=== PATIENT | female | born 1940 | race Caucasian/White ===

== ENCOUNTER 2016-11-23 14:06 | Inpatient (IN) ==
[2016-11-23 14:51] LABS: BASOPHILS % (AUTO) 0.7 % (0.0-3.0); EOSINOPHILS % (AUTO) 0.9 % (0.0-7.0); HEMATOCRIT 36.8 % (37.0-47.0); HEMOGLOBIN 12.4 g/dl (12.0-16.0); IMMATURE GRANULOCYTE % (AUTO) 1.2 % (0.0-5.0); LYMPHOCYTES # (AUTO) 0.6 K/uL (0.60-3.4); LYMPHOCYTES % (AUTO) 12.9 (10.0-50.0); MEAN CORPUSCULAR HEMOGLOBIN 33.5 pg (27.0-31.0); MEAN CORPUSCULAR HGB CONC 33.7 (31.8-35.4); MEAN CORPUSCULAR VOLUME 99.5 fl (81.0-99.0); MONOCYTES # (AUTO) 0.6 K/uL (0.4-2.0); MONOCYTES % (AUTO) 13.1 (0-10); NEUTROPHILS # (AUTO) 3.1 K/ul (2.0-6.9); NEUTROPHILS % (AUTO) 71.2; PLATELET COUNT 107 10^3/uL (140-440); WHITE BLOOD COUNT 4.28 K/ul (4.6-10.2)
[2016-11-23 14:56] LABS: BILIRUBIN,URINE 2+ (NEGATIVE); KETONES,URINE 1+ (NEGATIVE); LEUKOCYTE ESTERASE ,URINE Negative (NEGATIVE); NITRITE,URINE Negative (NEGATIVE); PH,URINE 5.5 (5-9); PROTEIN,URINE 2+ (NEGATIVE); URINE, BLOOD Negative (NEGATIVE)
[2016-11-23 15:00] LABS: ADD URINE MICROSCOPIC YES
--- NOTE | 2016-11-23 15:14 | DI ---
EXAM: Chest two views HISTORY: Cough COMPARISON: 11/08/2015 TECHNIQUE: Two views of the chest were performed FINDINGS: There is left-sided chest port terminating in superior vena cava. Lungs are clear. Ther e is no pleural effusion or pneumothorax. The heart is normal in size. The mediastinal contour is normal. There are no acute abnormalities of the bones. There is a moderate hiatal hernia. Electroni c recording device overlies the left chest. IMPRESSION: 1. No acute cardiopulmonary process. 2. Moderate hiatal hernia
[2016-11-23 15:19] LABS: ALBUMIN 3.1 g/dL (3.4-5.0); ALBUMIN/GLOBULIN RATIO 1.11; ANION GAP 17.4; BILIRUBIN,TOTAL 1.17 mg/dL (0.00-1.20); BUN/CREATININE RATIO 17.74; CALCIUM 9.1 mg/dL (8.2-10.2); CREATININE 1.24 mg/dL (0.60-1.30); POTASSIUM 4.4 mmol/L (3.5-5.10); TOTAL PROTEIN 5.9 g/dL (5.8-8.1); TROPONIN I 0.012 ng/ml (0.0000-0.4000)
--- NOTE | 2016-11-23 15:32 | CT ---
Exam: CT abdomen and pelvis without contrast. Clinical indication: Right upper abdominal pain. TECHNIQUE: Axial unenhanced CT images of the abdomen and pelvis were obtained followed by coronal a nd sagittal reformats. There are no prior studies available for comparison. Findings: There is interval development of the extensive hepatic metastatic lesions seen throughout the entire liver causing hepatomegaly. These range in size from small to greater than 3 cm in diameter and ar e too numerous to count. There is a trace of free fluid within the pelvis. The gallbladder is absent. The adrenals, pancreas, spleen, and right kidney are normal. There has been a prior left nephrectomy. Within the left retroperitoneal area there is some soft tissue thickening suggesting left retroperit alfredo adenopathy. This measures up to 1.4 cm in thickness. There are no other definite enlarged ab dominal or pelvic lymph nodes. The pelvic is somewhat obscured by beam hardening artifact from the patient's left total hip arthrop lasty. There appears to been a prior hysterectomy. There is sigmoid diverticulosis, without evidence of diverticulitis. There is a moderate hiatal her don. The remainder of the visualized bowel is unremarkable. There is a calcified right lower lobe pulmonary granuloma, consistent with old healed granulomatous disease. The remainder of the visuali zed portions of the lower thorax are unremarkable. There is no CT evidence of definite bony metastatic disease. Impression: 1. Extensive hepatic metastatic disease causing hepatomegaly. 2. Enlarged left retroperitoneal lymph nodes consistent with regional metastatic disease. 3. Evidence of prior left nephrectomy. 4. Sigmoid diverticulosis. 5. Moderate hiatal hernia.
--- NOTE | 2016-11-23 15:41 | ED.PDOC ---
General ED Provider: Dr. CHAIM MORRISON Chief Complaint: Weakness Stated Complaint: generalized weakness Time Seen by Physician: 14:10 (history of renal cancer) Mode of Arrival: Walk-In Information Source: Patient, Family Exam Limitations: No limitations Primary Care Provider: [facility] Nursing and Triage Documentation Reviewed and Agree: Yes Neurological Complaint Exam - Weakness Complaint/Exam Onset: Gradual Duration: 1 day Symptoms Are: Still present Timing: Constant Episodes Lasting: Hours Initial Severity: Mild Current Severity: Mild Character: Reports: Lightheaded, Weak Aggravating: Reports: Exertion Alleviating: Reports: Rest, Lying down Associated Signs and Symptoms: Denies: Nausea, Vomiting, Diaphoresis, Tinnitus, Chest pain, Short of air, Palpitations, Unsteady gait, GI blood loss, Visual changes, Decreased oral intake, Change in medication, Change in diet, OTC meds, Loss of balance Related History: Similar episode Cardiac Risk Factors: Reports: Hypertension, Elevated lipids CVA Risk Factors: Reports: Hypertension Related Surgical History: Reports: None JVD Present: No Carotid Bruit Present: No Rectal Heme Positive: No Glascow Coma Scale (see protocol): 15 Nystagmus Present: No Gag Reflex Present: Yes Meningeal Signs Positive: No Focal Weakness: Present: None Focal Sensory Loss: Present: None Gait: Normal Differential Diagnoses: CAD, Dysrhythmia, Hypovolemia, Metabolic abnormalities Quality Indicators for Cardiac Chest Pain: EKG in 10min. Quality Indicators for AMI: EKG in 10min. Quality Indicator For Non-Traumatic Chest Pain/Syncope: EKG Performed Review of Systems - Review Of Systems Constitutional: Reports: Malaise, Weakness Eyes: Reports: No symptoms Ears, Nose, Mouth, Throat: Reports: No symptoms Respiratory: Reports: No symptoms Cardiac: Reports: No symptoms GI: Reports: No symptoms : Reports: No symptoms Musculoskeletal: Reports: No symptoms Skin: Reports: No symptoms Neurological: Reports: No symptoms Endocrine: Reports: No symptoms Hematologic/Lymphatic: Reports: No symptoms All Other Systems: Reviewed and Negative Past Medical History - Past Medical History Previously Healthy: No Endocrine: Reports: Dyslipidemia Cardiovascular: Reports: Hypertension Respiratory: Reports: None Hematological: Reports: None Gastrointestinal: Reports: None Genitourinary: Reports: CKD Neuro/Psych: Reports: None Musculoskeletal: Reports: None Cancer: Reports: None Last Menstrual Period: none - Surgical History General Surgical History: Reports: Unknown - Family History Family History: Reports: Unknown - Social History Smoking Status: Never smoker Hx Substance Use: No Alcohol Screening: None Physical Exam - Physical Exam Appearance: Well-appearing, No pain distress, Well-nourished Eyes: MJ, EOMI, Conjunctiva clear ENT: Ears normal, Nose normal, Oropharynx normal Respiratory: Airway patent, Breath sounds clear, Breath sounds equal, Respirations nonlabored Cardiovascular: RRR, Pulses normal, No rub, No murmur GI/: Soft, Nontender, No masses, Bowel sounds normal, No Organomegaly Musculoskeletal: Normal strength, ROM intact, No edema, No calf tenderness Skin: Warm, Dry, Normal color Neurological: Sensation intact, Motor intact, Reflexes intact, Cranial nerves intact, Alert, Oriented Psychiatric: Affect appropriate, Mood appropriate Interpretation - Radiology Interpretation Radiology Interpretation By: Radiologist Radiology Results: Positive (liver mets) - 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 Rhythm: Sinus - EKG Interpretation Rate: Tachy Rhythm: Sinus Critical Care Note - Critical Care Note Total Time (mins): 0 Course - Course Hematology/Chemistry: 11/23/16 14:40 11/23/16 14:40 Orders, Labs, Meds: Lab Review 11/23/16 11/23/16 14:35 14:40 WBC 4.28 L RBC 3.70 L Hgb 12.4 Hct 36.8 L MCV 99.5 H MCH 33.5 H MCHC 33.7 RDW Coeff of Elton 15.6 H Plt Count 107 L Immature Gran % (Auto) 1.2 Neut % (Auto) 71.2 Lymph % (Auto) 12.9 Snyder % (Auto) 13.1 H Eos % (Auto) 0.9 Baso % (Auto) 0.7 Immature Gran # (Auto) 0.1 Neut # 3.1 Lymph # 0.6 Snyder # 0.6 Eos # 0.0 Baso # 0.0 Sodium 143 Potassium 4.4 Chloride 109 H Carbon Dioxide 21 L Anion Gap 17.4 BUN 22 H Creatinine 1.24 Estimated GFR (MDRD) 42.00 BUN/Creatinine Ratio 17.74 Glucose 89 Lactic Acid 25.6 H Calcium 9.1 Total Bilirubin 1.17 AST 109 H ALT 92 H Alkaline Phosphatase 461 H Total Creatine Kinase 109 Troponin I 0.0120 Total Protein 5.9 Albumin 3.1 L Globulin 2.8 Albumin/Globulin Ratio 1.11 Amylase 58 Lipase 56 Urine Color Dark Urine Clarity Clear Urine pH 5.5 Ur Specific Beryl >=1.030 Urine Protein 2+ Urine Glucose (UA) Negative Urine Ketones 1+ Urine Blood Negative Urine Nitrite Negative Urine Bilirubin 2+ Urine Urobilinogen 1.0 Ur Leukocyte Esterase Negative Urine Microscopic WBC 0-2 Ur Squamous Epith Cells 2-5 Amorphous Sediment 1+ Hyaline Casts 0-2 Orders Category Date Time Status EKG-(ED ONLY) Stat CARDIO 11/23/16 14:28 Ordered AMYLASE Stat LAB 11/23/16 14:40 Completed BLOOD CULTURE Stat LAB 11/23/16 14:40 Received CBC W/ AUTO DIFF Stat LAB 11/23/16 14:40 Completed COMPREHENSIVE METABOLIC PANEL Stat LAB 11/23/16 14:40 Completed CREATINE KINASE Stat LAB 11/23/16 14:40 Completed LACTIC ACID Stat LAB 11/23/16 14:40 Completed LIPASE Stat LAB 11/23/16 14:40 Completed TROPONIN I Stat LAB 11/23/16 14:40 Completed URINALYSIS C & S IF INDICATED Stat LAB 11/23/16 14:35 Completed CHEST, 2 VIEWS PA & LAT Stat RADS 11/23/16 14:[address] ABDOMEN/PELVIS WO CONTRAST Stat RADS 11/23/16 14:29 Completed Vital Signs: Temp Pulse Resp BP Pulse Ox 11/23/16 14:07 97.9 F 97 H 18 131/64 97 Departure - Departure Time of Disposition: 15:41 Disposition: HOME SELF-CARE Discharge Problem: Weakness Instructions: Weakness (ED) Condition: Good Pt referred to PMD for follow-up: No Additional Instructions: Please call your Family Physician as soon as possible to schedule a follow-up appointment. Allergies/Adverse Reactions: Allergies No Known Allergies Allergy (Verified 11/23/16 14:23) Home Medications: Ambulatory Orders Hydroxychloroquine Sulfate [Plaquenil] 200 mg PO BID 05/08/15 Ropinirole HCl 1 mg PO BEDTIME 05/08/15 Folic Acid 1 mg PO DAILY #30 tab-cap 09/03/15 Methotrexate Sodium [Methotrexate] 10 mg PO WEEKLY #32 tab-cap 09/03/15 Venlafaxine HCl [Venlafaxine Hcl Er] 150 mg PO DAILY tab-cap 12/26/15
[2016-11-23] MEDS ORDERED: FOLIC ACID 1 MG, THIAMINE 100 MG, INFUVITE ADULT 10 ML in SODIUM CHLORIDE 0.9%-KCL 20 M... IV SCH (16:00)
[2016-11-23 17:09] VITALS: BMI 25.7
[2016-11-23] MEDS: REQUIP PO SCH (20:31)
[2016-11-23] MEDS: DILAUDID 1 MG/ML SYRINGE IVP SCH (20:56)
[2016-11-24] MEDS ORDERED: INFUVITE ADULT IV ONE (01:51)
[2016-11-24] MEDS: DILAUDID 1 MG/ML SYRINGE IVP SCH ×6 (01:55→20:44)
[2016-11-24] MEDS: INFUVITE ADULT 10 ML in D5%-1/4NS-KCL 20 MEQ/L IV SOL 1,000 ML IV SCH (02:01)
[2016-11-24] MEDS: VITAMIN B-12 IM SCH ×2 (04:20→09:04)
[2016-11-24 04:57] LABS: BASOPHILS % (AUTO) 0.9 % (0.0-3.0); EOSINOPHILS # (AUTO) 0.1 K/ul (0.0-0.7); EOSINOPHILS % (AUTO) 1.7 % (0.0-7.0); HEMATOCRIT 34.5 % (37.0-47.0); HEMOGLOBIN 11.2 g/dl (12.0-16.0); IMMATURE GRANULOCYTE % (AUTO) 1.1 % (0.0-5.0); LYMPHOCYTES # (AUTO) 0.6 K/uL (0.60-3.4); LYMPHOCYTES % (AUTO) 15.8 (10.0-50.0); MEAN CORPUSCULAR HEMOGLOBIN 32.9 pg (27.0-31.0); MEAN CORPUSCULAR HGB CONC 32.5 (31.8-35.4); MEAN CORPUSCULAR VOLUME 101.5 fl (81.0-99.0); MONOCYTES # (AUTO) 0.6 K/uL (0.4-2.0); MONOCYTES % (AUTO) 16.9 (0-10); NEUTROPHILS # (AUTO) 2.2 K/ul (2.0-6.9); NEUTROPHILS % (AUTO) 63.6; PLATELET COUNT 89 10^3/uL (140-440); WHITE BLOOD COUNT 3.49 K/ul (4.6-10.2)
[2016-11-24 05:25] LABS: ALBUMIN 2.7 g/dL (3.4-5.0); ALBUMIN/GLOBULIN RATIO 1.08; ANION GAP 12.3; BILIRUBIN,TOTAL 1.11 mg/dL (0.00-1.20); BUN/CREATININE RATIO 18.91; CALCIUM 8.6 mg/dL (8.2-10.2); CREATININE 1.11 mg/dL (0.60-1.30); POTASSIUM 5.3 mmol/L (3.5-5.10); TOTAL PROTEIN 5.2 g/dL (5.8-8.1)
[2016-11-24] MEDS ORDERED: NON-FORMULARY MEDICATION (Venlafaxine Hcl [Venlafaxine Hcl Er] 150 MG) PO SCH (09:00)
[2016-11-24] MEDS: EFFEXOR XR PO SCH (09:04)
[2016-11-24] MEDS: DEXTROSE IV SCH (14:50)
[2016-11-24] MEDS: SOD CHLORIDE 0.225% IV SCH (14:50)
[2016-11-24] MEDS: INFUVITE ADULT IV SCH (14:50)
[2016-11-24] MEDS: REQUIP PO SCH (20:43)
[2016-11-25] MEDS: DILAUDID 1 MG/ML SYRINGE IVP SCH ×6 (01:21→21:06)
[2016-11-25] MEDS ORDERED: INFUVITE ADULT IV ONE ×2 (01:42→19:12)
[2016-11-25] MEDS: DEXTROSE IV SCH ×2 (02:46→21:15)
[2016-11-25] MEDS: INFUVITE ADULT IV SCH ×2 (02:46→21:15)
[2016-11-25] MEDS: SOD CHLORIDE 0.225% IV SCH ×2 (02:46→21:15)
[2016-11-25 04:49] LABS: BASOPHILS % (AUTO) 0.7 % (0.0-3.0); EOSINOPHILS # (AUTO) 0.1 K/ul (0.0-0.7); EOSINOPHILS % (AUTO) 1.7 % (0.0-7.0); HEMATOCRIT 36.5 % (37.0-47.0); HEMOGLOBIN 11.8 g/dl (12.0-16.0); IMMATURE GRANULOCYTE % (AUTO) 0.5 % (0.0-5.0); LYMPHOCYTES # (AUTO) 0.4 K/uL (0.60-3.4); LYMPHOCYTES % (AUTO) 9.9 (10.0-50.0); MEAN CORPUSCULAR HEMOGLOBIN 32.9 pg (27.0-31.0); MEAN CORPUSCULAR HGB CONC 32.3 (31.8-35.4); MEAN CORPUSCULAR VOLUME 101.7 fl (81.0-99.0); MONOCYTES # (AUTO) 0.6 K/uL (0.4-2.0); MONOCYTES % (AUTO) 15.3 (0-10); NEUTROPHILS # (AUTO) 2.9 K/ul (2.0-6.9); NEUTROPHILS % (AUTO) 71.9; PLATELET COUNT 97 10^3/uL (140-440); RED BLOOD COUNT 3.59 10^6/ul (4.20-5.40); WHITE BLOOD COUNT 4.06 K/ul (4.6-10.2)
[2016-11-25 05:27] LABS: ALBUMIN/GLOBULIN RATIO 1.25; ANION GAP 13.6; BILIRUBIN,TOTAL 0.95 mg/dL (0.00-1.20); BUN/CREATININE RATIO 18.01; CALCIUM 8.8 mg/dL (8.2-10.2); CREATININE 1.11 mg/dL (0.60-1.30); POTASSIUM 5.6 mmol/L (3.5-5.10); TOTAL PROTEIN 5.4 g/dL (5.8-8.1)
[2016-11-25] MEDS: INFUVITE ADULT 10 ML in D5%-1/4NS-KCL 20 MEQ/L IV SOL 1,000 ML IV SCH (07:31)
[2016-11-25] MEDS: EFFEXOR XR PO SCH (08:50)
[2016-11-25] MEDS: VITAMIN B-12 IM SCH (08:50)
--- NOTE | 2016-11-25 13:31 | HP ---
CHIEF COMPLAINT: Pain right upper quadrant abdomen and flank. HISTORY OF PRESENT ILLNESS: This is a 76-year-old female who about two weeks ago had began experiencing some fatigue. Her appetite remained essentially the same. She also has pain in the right upper flank. She had blood tests done at [facility] and the AST and ALT were slightly elevated 109 and 130 respectively. The patient was seen in the emergency room and subsequently admitted because of fatigue. The patient also had elevated AST and ALT as well as alkaline phosphatase. CT scan of the abdomen and pelvis done in the emergency room showed extensive hepatic metastasis to liver causing hepatomegaly probably the source of pain. The largest size is 3 cm. Also retroperitoneal adenopathy measuring up to 1.4 cm in thickness. PAST MEDICAL HISTORY: 1. Myocardial infarction 2. Arthritis, rheumatoid 3. Restless leg syndrome 4. Depression PAST SURGICAL HISTORY: 1. Left nephrectomy and ureterectomy 2. Scraping of the right ureter 3. Left hip replacement 4. Sinus surgery 5. Shoulder surgery, gallbladder and back 6. Hysterectomy 7. Surgical correction to the thumb 8. Cardiac catheterization with angioplasty and stent FAMILY HISTORY: The father had multiple myeloma; mother had breast carcinoma and after 11 years of the disease. No other disease in the family and no diabetes, no cardiovascular disease, no CVA. SOCIAL HISTORY: The patient is and resides with her . 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 She never did smoke. No alcoholic beverages. MEDICATIONS: (HOME) 1. Hydroxychloroquine (Plaquenil) 200 mg p.o. b.i.d. 2. Ropinirole 1 mg p.o. bedtime 3. Methotrexate 10 mg p.o. weekly 4. Folic Acid 1 mg p.o. daily 5. Venlafaxine 150 mg p.o. daily ALLERGIES: NKDA REVIEW OF SYSTEMS: CONSTITUTIONAL: The patient has no fever, no chills but is tired. Appetite seems to have remained the same. Complaining of pain in the right upper quadrant and upper right flank. 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 No history of seizure disorder. No significant headache. No ataxia. VISUAL: Denies any blurred vision, double vision or transient loss of vision. AUDITORY: Hearing is adequate. Denies any tinnitus, pain or drainage. RESPIRATORY: The patient denies any significant cough and no history of hemoptysis. No shortness of breath. CARDIOVASCULAR: Denies any chest pain or chest oppression. GASTROINTESTINAL: Complaining of pain in the right upper quadrant but no nausea or vomiting as well as right upper flank. No diarrhea. 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 She also developed a malignancy in the right ureter and that was scraped. The patient was offered right nephrectomy and ureterectomy and placed on dialysis. The patient chose not to have dialysis. The surgery on the left kidney was done March 2016. MUSCULOSKELETAL: The patient had replacement of the hip and did well. She is able to move well. Problem now is muscular fatigue that she has endured. INTEGUMENT: No rash or pruritus and no spontaneous ecchymosis. ENDOCRINE: Negative. HEMATOLOGIC: Negative. PSYCHIATRIC: The patient's affect is appropriate. PHYSICAL EXAMINATION: GENERAL: 76-year-old female admitted to the hospital because of fatigue in the last two weeks and progressive. AST and ALT were elevated in the previous lab tests done at [facility] [place]. The patient is known to have history of renal carcinoma, left side plus ureter and did undergo ureterectomy and another malignancy in the right ureter that was scraped. VITAL SIGNS: On admission: temperature 97.9, pulse 97, BP 131/64, respiratory rate 18, oxygen saturation 97% on room air. Height is 5'3" and 141- 145 lbs; 8.081 oz. The 141 was obtained in the ER and the 145 lbs, 8.081 oz was obtained on admission to the floor. HEAD: Unremarkable. Face is symmetrical and equal with no facial weakness. No tenderness in the frontal or maxillary sinus areas. EYES: Pupils equal/reactive to light about 3 mm in size. Conjunctivae not pale. Sclerae not icteric. MOUTH: Unremarkable. THROAT: No inflammation, tumors or exudate. NECK: No masses. No bruit. No tenderness. No rigidity. No adenopathy. CHEST: Essentially symmetrical and equal with good expansion. LUNGS: Breath sounds are heard on both sides. No rales or wheezing. HEART: Audible and regular with good tones. No murmurs. ABDOMEN: Slightly flat with some tenderness in the right upper quadrant and more in the upper flank. There are no palpable masses. Bowel sounds are active. No bruit. EXTERNAL GENITALIA: Not examined. PELVIC/RECTAL: Not done. LOWER EXTREMITIES: Essentially symmetrical and equal with no edema. Anterior tibials and posterior tibials palpable. UPPER EXTREMITIES: Symmetrical and equal. ASSESSMENT: 1. 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 2. Right ureteral carcinoma scraped recently. 3. Multiple liver nodules probably metastatic. 4. Elevated ALT, AST and alkaline phosphatase secondary to #3. PLAN: 1. Supportive therapy. MTDD
[2016-11-25] MEDS ORDERED: PROTONIX IV 40 MG in SODIUM CHLORIDE 100 ML IV SCH (21:00)
[2016-11-25] MEDS: REQUIP PO SCH (21:10)
[2016-11-25] MEDS ORDERED: PROTONIX IV ONE (21:16)
[2016-11-26] MEDS: DILAUDID 1 MG/ML SYRINGE IVP SCH ×6 (00:25→21:46)
[2016-11-26] MEDS: DEXTROSE IV SCH ×2 (01:55→10:35)
[2016-11-26] MEDS: SOD CHLORIDE 0.225% IV SCH ×2 (01:55→10:35)
[2016-11-26] MEDS: INFUVITE ADULT IV SCH ×2 (01:55→10:35)
[2016-11-26 06:45] LABS: BASOPHILS % (AUTO) 0.4 % (0.0-3.0); EOSINOPHILS # (AUTO) 0.1 K/ul (0.0-0.7); EOSINOPHILS % (AUTO) 2.6 % (0.0-7.0); HEMATOCRIT 37.1 % (37.0-47.0); HEMOGLOBIN 12.3 g/dl (12.0-16.0); IMMATURE GRANULOCYTE % (AUTO) 0.7 % (0.0-5.0); LYMPHOCYTES # (AUTO) 0.6 K/uL (0.60-3.4); LYMPHOCYTES % (AUTO) 12.3 (10.0-50.0); MEAN CORPUSCULAR HEMOGLOBIN 33.6 pg (27.0-31.0); MEAN CORPUSCULAR HGB CONC 33.2 (31.8-35.4); MEAN CORPUSCULAR VOLUME 101.4 fl (81.0-99.0); MONOCYTES # (AUTO) 0.9 K/uL (0.4-2.0); MONOCYTES % (AUTO) 18.6 (0-10); NEUTROPHILS % (AUTO) 65.4; PLATELET COUNT 94 10^3/uL (140-440); RED BLOOD COUNT 3.66 10^6/ul (4.20-5.40); WHITE BLOOD COUNT 4.57 K/ul (4.6-10.2)
[2016-11-26 07:27] LABS: ALBUMIN 2.8 g/dL (3.4-5.0); ANION GAP 15.3; BILIRUBIN,TOTAL 0.98 mg/dL (0.00-1.20); BUN/CREATININE RATIO 14.61; CREATININE 1.3 mg/dL (0.60-1.30); POTASSIUM 5.3 mmol/L (3.5-5.10); TOTAL PROTEIN 5.6 g/dL (5.8-8.1)
[2016-11-26] MEDS: VITAMIN B-12 IM SCH (08:19)
[2016-11-26] MEDS: EFFEXOR XR PO SCH (08:19)
--- NOTE | 2016-11-26 09:44 | PN ---
DATE OF VISIT: 11/25/16 The patient is alert and oriented times four. We had a conversation about her CT scan. Since she asked me about her scan, I told her that there are some nodules in the liver. She asked me if it could be something else other than tumor that had traveled to the liver. I did inform her that it is likely to be related to the cancer that she had since there are multiple areas. These areas are also solid and the radiologist felt that it may be related to the cancer. I told her that I had not talked to [facility]. I will try to talk to [facility], as well as [facility] and also in [place] to see if they have any new treatment for this problem. I told them that there are other places who test tumors for genetic identification. I know that there is one in [place], [facility]. I believe that [facility] has. There is a program that they might be able to help her and I would try to advise her to probably give it a shot. The patient was agreeable for me to explore. The patient is having hiccups and that is probably from the diaphragmatic irritation from liver metastases. She also has some reflux problems and I will try to give Protonix 40 mg IV. MTDD
[2016-11-26] MEDS: MIRALAX PO SCH (14:08)
[2016-11-26] MEDS ORDERED: PROTONIX IV 40 MG in SODIUM CHLORIDE 100 ML IV SCH (21:00)
[2016-11-26] MEDS: REQUIP PO SCH (21:46)
[2016-11-27] MEDS ORDERED: INFUVITE ADULT IV ONE (00:27)
[2016-11-27] MEDS: DILAUDID 1 MG/ML SYRINGE IVP SCH ×4 (00:44→13:47)
[2016-11-27] MEDS: INFUVITE ADULT IV SCH ×4 (01:36→13:47)
[2016-11-27] MEDS: SOD CHLORIDE 0.225% IV SCH ×4 (01:36→13:47)
[2016-11-27] MEDS: DEXTROSE IV SCH ×4 (01:36→13:47)
[2016-11-27 06:08] VITALS: TEMP 97.8
[2016-11-27 06:26] LABS: BASOPHILS % (AUTO) 0.4 % (0.0-3.0); EOSINOPHILS # (AUTO) 0.1 K/ul (0.0-0.7); EOSINOPHILS % (AUTO) 2.2 % (0.0-7.0); HEMATOCRIT 34.8 % (37.0-47.0); HEMOGLOBIN 11.7 g/dl (12.0-16.0); IMMATURE GRANULOCYTE % (AUTO) 0.2 % (0.0-5.0); LYMPHOCYTES # (AUTO) 0.6 K/uL (0.60-3.4); LYMPHOCYTES % (AUTO) 11.9 (10.0-50.0); MEAN CORPUSCULAR HEMOGLOBIN 33.2 pg (27.0-31.0); MEAN CORPUSCULAR HGB CONC 33.6 (31.8-35.4); MEAN CORPUSCULAR VOLUME 98.9 fl (81.0-99.0); MONOCYTES % (AUTO) 18.9 (0-10); NEUTROPHILS # (AUTO) 3.3 K/ul (2.0-6.9); NEUTROPHILS % (AUTO) 66.4; PLATELET COUNT 90 10^3/uL (140-440); RED BLOOD COUNT 3.52 10^6/ul (4.20-5.40); WHITE BLOOD COUNT 5.03 K/ul (4.6-10.2)
[2016-11-27 06:47] LABS: ALBUMIN 2.6 g/dL (3.4-5.0); ALBUMIN/GLOBULIN RATIO 1.04; ANION GAP 15.1; BILIRUBIN,TOTAL 1.08 mg/dL (0.00-1.20); BUN/CREATININE RATIO 16.96; CALCIUM 8.8 mg/dL (8.2-10.2); CREATININE 1.12 mg/dL (0.60-1.30); POTASSIUM 5.1 mmol/L (3.5-5.10); TOTAL PROTEIN 5.1 g/dL (5.8-8.1)
[2016-11-27] MEDS: EFFEXOR XR PO SCH (08:10)
[2016-11-27] MEDS: VITAMIN B-12 IM SCH (08:11)
[2016-11-27] MEDS: MIRALAX PO SCH (08:11)
--- NOTE | 2016-11-27 13:13 | PN ---
DATE OF VISIT: 11/26/16 The patient feels a little bit more tired today. Her CBC stayed more or less essentially the same. The alkaline phosphatase is about the same or slightly lower than admission, 461 on admission and down to 400 and it is about 440 right now. AST and ALT with slight elevation of the AST to 120 from 109 and ALT is down to 82 from 92. Total protein is low. This is probably from hydration. Her total protein on admission was borderline at 5.9. Serum amylase and lipase were normal. I called Dr. Messi Ruiz and he was kind enough to return the call and I did tell him that I just want to touch base with him with regards to the patient, since she has developed some liver metastasis. He directed me to call to the oncologist, Dr. Hansen and I did tell him that Dr. Hansen is no longer in that facility where he was. I tried to call Dr. Ken Watson at [facility] and I left my phone number. He has not called me back up to this time. I had called [facility], and talked to the intake individual and they wanted records and I will try to send the records tomorrow. The fax number is [phone], luciano Alexis. I also called [facility] at [phone] and did speak to the individual on the oncology for uptake for the information and they wanted to me to fax the records to them at [phone] attention Cynthia. I will try to fax these with the permission of the patient. They will call us back after reviewing the records whether they will be in a position to help the patient's problems. I will try to gather all of the information tomorrow as to initially when she was diagnosed with the problem at [facility] when she presented to the emergency room and then referred to [place] to Dr. Ruiz. The patient will be informed of these conversations that I had. LOLA
[2016-11-27 13:56] VITALS: BP 102/64
[2016-11-27] MEDS ORDERED: DILAUDID 1 MG/ML SYRINGE IVP SCH ×2 (14:30→18:00)
[2016-11-27 21:29] LABS: PROTHROMBIN TIME 12.3 SEC (9.3-11.0)
--- NOTE | 2016-12-01 11:54 | DS ---
PATIENT IDENTIFICATION: 76 year old female began experiencing some fatigue about two weeks prior to presentation to the emergency room 11/23/2016. Her appetite had remained essentially the same. She also was experiencing pain in the right upper flank. She had blood tests done at [facility] showing an elevated AST and ALT. 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 The patient was then admitted. 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 The patient declined right nephroureterectomy followed by dialysis. 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 The patient did receive chemotherapy with the left ureteral carcinoma post surgery. Her other medical problems consisted of myocardial infarction, rheumatoid arthritis under the care of a Lubrication Technician. Restless leg syndrome and depression. She also had left hip replacement, sinus surgery, shoulder surgery, gallbladder surgery and lumbar surgery. She also had a hysterectomy, cardiac catheterization with angioplasty and stent. Her father had multiple myeloma and daughter had breast carcinoma and after 11 years of the disease. The work-up during this admission consisted of chest x-ray showing no acute cardiopulmonary processes, moderate hiatal hernia. CT scan of the abdomen and pelvis without contrast showed the adrenals, pancreas, spleen and right kidney are normal. Trace of fluid in the pelvis. Extensive hepatic metastases throughout the entire liver causing the hepatomegaly, Metastatic nodules ranging in size from small to greater than 3 cm in size. There are numerous tumors to count. Some thickening in the left retroperitoneal area suggesting left retroperitoneal adenopathies. This measures up to 1.4 cm in thickness. Serial CBC's showing minimal leukopenia, mild anemia, slightly elevated MCV and MCH. Serial chemistries showed electrolytes unremarkable, BUN is slightly elevated, creatinine slightly elevated. E GFR ranged from 42 to 48. Lactic acid slightly elevated 25.6. AST slightly rising from the low 105 and the last determination 11/27/16 of 124. ALT slightly elevated and has returned to normal on 11/27/16. Alkaline phosphatase was 461 on admission and is down to 394 on discharge. Total protein is below normal. One urinalysis showed specific gravity greater than 1.030, urine protein 2+, ketones 1+, urine bilirubin 2+, WBC 0-2, no RBC. The patient was given Dilaudid 1 mg IV slow every 4 hours. She was kept on IV fluids consisting of D5 1/4 Saline 1,000 cc, plus MVI. The patient's appetite has more or less decreased somewhat and varying from 0 to 75%. She remained afebrile throughout her hospital stay and her blood pressure more or less remained normal. Oxygen saturation ranged from 92 to 95. I had discussed about looking a referral and I did talk to Dr. Ruiz who did the operation. He felt that the patient needs to go to Oncology. He told me that the patient was treated by Dr. Spence, who took over Dr. Chua's office. Dr. Spence is no longer at that facility, he moved out of town. I discussed also looking for places and I called [place], [place], since the patient was referred to Dr. lFowers by Dr. Ruiz. The doctor, however, is not there since he went to a medical meeting and would not be back until 11/30/2016. I did inform the patient that I had talked to [facility] in [place] and [facility] in [place]. I had sent her records to them today and I don't know when I hear from them and I would venture that the earliest would be Wednesday. I would try to touch base with them and see if there is anything else that they need before deciding whether they would be able to offer treatment for her problems. They may need probably a CT scan of the head, as well as the chest, but I would not do these procedures until after the receiving tertiary care would request them. The patient at the time of discharge to [facility] was alert, oriented times four. Not dyspneic, nor tachypneic. She still has the pain, but it is relieved by the regular administration of the pain medication. LUNGS: Remain clear to auscultation in both sides. HEART: Normal sinus rhythm. ABDOMEN: Remained soft with some tenderness in the right upper quadrant. There are no masses palpable. Bowel sounds are active. FINAL DIAGNOSES: 1. LEFT URETERAL CARCINOMA, STATUS POST LEFT NEPHROURETERECTOMY 2. RIGHT URETERAL CARCINOMA TREATED WITH SCRAPING 3. MULTIPLE NODULES OF LIVER, PROBABLY METASTATIC 4. ADENOPATHIES LEFT RETROPERITONEAL, PROBABLY METASTATIC 5. ELEVATED AST AND ALT, PROBABLY SECONDARY TO LIVER NODULES 6. ELEVATED ALKALINE PHOSPHATASE, PROBABLY DUE TO LIVER NODULES PROGNOSIS: Grim. MTDD
--- NOTE | 2016-12-21 11:03 | PN ---
DATE OF VISIT: 11/24/16 SUBJECTIVE: This patient was admitted yesterday 11/23/16 from the emergency room because of pain in the right flank upper, decreased appetite and fatigue. Blood test done at [facility] showed elevated AST and ALT slight. AST and ALT had increased some more at [facility]. Blood test including the alkaline phosphatase. The CAT scan of the abdomen and pelvis showed multiple areas of metastasis in the liver causing hepatomegaly which probably is the source of the pain. His rheumatoid arthritis medication consisting of Methotrexate and Hydroxychloroquine were discontinued. The patient was given Hydromorphone 1mg IV slow push Q 4 hours for the pain. She is also given Dextrose 5% on 10/28 saline plus Mvi at 83cc per hour. VITAL SIGNS: Temperature 96.6, pulse 86, blood pressure 119/68, respiratory rate 12 and oxygen saturation 94% at room air. PROGNOSIS: Poor. MTDD
== END 2016-11-27 14:12 | disposition swing bed (61) | DRG 687 ==
LOC: ED 14:06 → MEDSURG B 15:53
PROVIDERS: ADMIT General Practice; ATTEND General Practice
DX: C66.2 Malignant neoplasm of left ureter (principal); C22.8 Malignant neoplasm of liver, primary, unspecified as to type; C96.9 Malignant neoplasm of lymphoid, hematopoietic and related tissue, unspecified; C66.1 Malignant neoplasm of right ureter; R16.0 Hepatomegaly, not elsewhere classified; R59.9 Enlarged lymph nodes, unspecified; R74.8 Abnormal levels of other serum enzymes; I10 Essential (primary) hypertension; E78.5 Hyperlipidemia, unspecified; R10.11 Right upper quadrant pain; K44.9 Diaphragmatic hernia without obstruction or gangrene; R53.1 Weakness; I25.2 Old myocardial infarction; Z90.5 Acquired absence of kidney; Z90.6 Acquired absence of other parts of urinary tract; Z79.899 Other long term (current) drug therapy
CPT/HCPCS: 36415; 80053; 81001; 82150; 82550; 83605; 83690; 84484; 85025; 85610; 87040; 93005; 93010; 99223; 99232; 99239; 99284

== ENCOUNTER 2016-11-27 14:23 | Inpatient (IN) ==
[2016-11-27] MEDS: DILAUDID 1 MG/ML SYRINGE IVP SCH ×2 (17:54→22:19)
[2016-11-27] MEDS ORDERED: REQUIP PO SCH (21:00)
[2016-11-27] MEDS ORDERED: PROTONIX IV 40 MG in SODIUM CHLORIDE 100 ML IV SCH (21:00)
[2016-11-28] MEDS ORDERED: INFUVITE ADULT IV ONE ×2 (02:13→15:23)
[2016-11-28] MEDS: SOD CHLORIDE 0.225% IV SCH ×3 (02:56→15:32)
[2016-11-28] MEDS: INFUVITE ADULT IV SCH ×3 (02:56→15:32)
[2016-11-28] MEDS: DEXTROSE IV SCH ×3 (02:56→15:32)
[2016-11-28] MEDS: DILAUDID 1 MG/ML SYRINGE IVP SCH ×2 (02:59→05:51)
[2016-11-28 08:00] LABS: BASOPHILS % (AUTO) 0.7 % (0.0-3.0); EOSINOPHILS # (AUTO) 0.1 K/ul (0.0-0.7); EOSINOPHILS % (AUTO) 2.4 % (0.0-7.0); HEMATOCRIT 32.2 % (37.0-47.0); HEMOGLOBIN 11.1 g/dl (12.0-16.0); IMMATURE GRANULOCYTE % (AUTO) 0.5 % (0.0-5.0); LYMPHOCYTES # (AUTO) 0.5 K/uL (0.60-3.4); LYMPHOCYTES % (AUTO) 12.3 (10.0-50.0); MEAN CORPUSCULAR HEMOGLOBIN 33.1 pg (27.0-31.0); MEAN CORPUSCULAR HGB CONC 34.5 (31.8-35.4); MEAN CORPUSCULAR VOLUME 96.1 fl (81.0-99.0); MONOCYTES # (AUTO) 0.8 K/uL (0.4-2.0); MONOCYTES % (AUTO) 18.2 (0-10); NEUTROPHILS # (AUTO) 2.8 K/ul (2.0-6.9); NEUTROPHILS % (AUTO) 65.9; PLATELET COUNT 82 10^3/uL (140-440); RED BLOOD COUNT 3.35 10^6/ul (4.20-5.40); WHITE BLOOD COUNT 4.23 K/ul (4.6-10.2)
[2016-11-28 08:26] LABS: ALBUMIN 2.4 g/dL (3.4-5.0); ALBUMIN/GLOBULIN RATIO 1.04; ANION GAP 15.9; BILIRUBIN,TOTAL 1.17 mg/dL (0.00-1.20); BUN/CREATININE RATIO 15.17; CALCIUM 8.5 mg/dL (8.2-10.2); CREATININE 1.12 mg/dL (0.60-1.30); POTASSIUM 4.9 mmol/L (3.5-5.10); TOTAL PROTEIN 4.7 g/dL (5.8-8.1)
[2016-11-28] MEDS ORDERED: VITAMIN B-12 IM SCH (09:00)
[2016-11-28] MEDS ORDERED: NON-FORMULARY MEDICATION (Venlafaxine Hcl [Venlafaxine Hcl Er] 150 MG) PO SCH (09:00)
[2016-11-28] MEDS ORDERED: MIRALAX PO SCH (09:00)
[2016-11-28] MEDS ORDERED: EFFEXOR XR PO SCH (09:00)
[2016-11-28] MEDS: OXYCODONE PO SCH ×2 (09:06→13:43)
[2016-11-28 14:15] VITALS: BP 117/77; TEMP 97.4
[2016-11-28 17:06] LABS: CHOL/HDL RATIO 5.5 (4.5-5.5)
--- NOTE | 2016-11-30 15:29 | DS ---
PATIENT IDENTIFICATION: This patient was seen at the emergency room 11/23/2016 because of pain in the right upper quadrant and lateral, as well as right upper flank. The patient is known to have left ureteral carcinoma and did undergo surgery with removal of the kidney and the ureter on the left side. The patient , last September, was found to have another carcinoma on the ureter on the right. The patient refused to have removal of the kidney, as well as the ureter and undergoes dialysis. HOSPITAL COURSE: This patient will be followed every three months by the urologist who scraped the ureter. The patient, while in the emergency room, had a chest x-ray showing no acute cardiopulmonary processes. However, the CT of the abdomen and pelvis without contrast showed multiple nodular areas in the liver judged as metastatic disease too numerous to count. The largest is beyond 3 cm in size. The patient's liver enzymes were elevated, as well as the alkaline phosphatase. She had mild anemia and remained stable during her hospital stay. The ALT has returned to normal and the AST is slightly higher than admission. Alkaline phosphatase remained lower from admission at 461 to 394. The patient, since admission to [facility], remained stable. This patient also was continued on IV Dilaudid every four hours around the clock. She also was given IV fluids for electrolyte replacement, plus multivitamins. The patient, today, is alert and oriented times four. Not dyspneic, nor tachypneic. VITAL SIGNS: At 2 o'clock in the afternoon, showed a temperature of 97.4, pulse 98, blood pressure 117/77, respirations 18, oxygen saturation 95 at room air. LUNGS: Clear to auscultation. HEART: Audible and regular with good tones. LOWER EXTREMITIES: No tenderness in the calf muscles and no pain. I did bring the idea of going home and if the oral medication for pain will control the pain and so she was tried on Oxycodone 5 mg every 4 hours. The patient seemed to have good relief and so this patient will be going home and continued on Oxycodone to be taken every four hours as needed. She should resume all of her previous medications, except the rheumatoid arthritis medication. She knows that I am waiting for the communications from either [facility] in [place] or [facility]. I did inform her that I will call her Wednesday either morning of afternoon whether I have some information or not. I will try to touch base with those two places to see if there is any more they needed from us. This patient should not resume her Methotrexate, as well as Plaquenil. I will ask for lipid panel from the samples done today. This patient may benefit with statins, since statins sometimes promotes aphthosis of cells. FINAL DIAGNOSES: 1. LEFT URETERAL CARCINOMA, STATUS POST NEPHROURETERECTOMY 2. RIGHT URETERAL CARCINOMA, POST SCRAPING 3. MULTIPLE NODULES OF LIVER, METASTATIC, LARGEST GREATER THEN 3 CM 4. RHEUMATOID ARTHRITIS 5. HISTORY OF DEPRESSION MTDD
== END 2016-11-28 17:00 | disposition home or self-care (01) | DRG 687 ==
LOC: MEDSURG B 14:23 → UNDOADMIN 14:23
PROVIDERS: ADMIT General Practice; ATTEND General Practice
DX: C66.2 Malignant neoplasm of left ureter (principal); C22.9 Malignant neoplasm of liver, not specified as primary or secondary; C66.1 Malignant neoplasm of right ureter; R74.8 Abnormal levels of other serum enzymes; D64.9 Anemia, unspecified; M19.90 Unspecified osteoarthritis, unspecified site; Z99.2 Dependence on renal dialysis; Z90.6 Acquired absence of other parts of urinary tract; Z90.5 Acquired absence of kidney; Z86.59 Personal history of other mental and behavioral disorders; Z79.891 Long term (current) use of opiate analgesic; Z79.899 Other long term (current) drug therapy
CPT/HCPCS: 36415; 80053; 80061; 85025; 99223; 99239